=== PATIENT | female | born 1945 | race Caucasian/White ===

== ENCOUNTER → 2016-07-26 | Outpatient (CLI) | payer MEDICARE | END | disposition home or self-care (01) | LOC: PCVCIMAG 10:46 | PROVIDERS: ATTEND Internal Medicine Cardiovascular Disease | DX: I10 Essential (primary) hypertension (principal); I65.23 Occlusion and stenosis of bilateral carotid arteries; I70.1 Atherosclerosis of renal artery; I71.4 Abdominal aortic aneurysm, without rupture; I25.10 Atherosclerotic heart disease of native coronary artery without angina pectoris; E78.00 Pure hypercholesterolemia, unspecified; E78.70 Disorder of bile acid and cholesterol metabolism, unspecified | CPT/HCPCS: 93005; 93880; G0463 ==

== ENCOUNTER → 2017-04-25 | Outpatient (CLI) | payer MEDICARE ==
--- NOTE | 2017-04-25 13:22 | PCVCIMAG ---
EXAM: BILATERAL CAROTID DUPLEX INDICATION: Carotid Occlusive Disease. FINDINGS: Doppler Measurements (centimeters per second): RIGHT: Peak CCA-89, Peak ECA-228, Diastolic ICA-44, Peak ICA-219, ICA/CCA Ratio-2.5. LEFT: Peak CCA-89, Peak ECA-244, Diastolic ICA-41, Peak ICA-176, ICA/CCA Ratio-2.0. RIGHT CAROTID: The carotid bulb has moderately severe plaque. The proximal internal carotid artery shows 60-70% stenosis. The common carotid artery shows no significant stenosis. The external carotid artery shows 70% stenosis. LEFT CAROTID: The carotid bulb has moderately severe plaque. The proximal internal carotid artery shows 60-70% stenosis. The common carotid artery shows no significant stenosis. The external carotid artery shows 70% stenosis. Antegrade flow in both vertebral arteries. IMPRESSION: 60-70% stenosis of the right internal carotid artery with moderately severe plaque. 60-70% stenosis of the left internal carotid artery with moderately severe plaque. LOC:[place] [id number]
--- NOTE | 2017-04-25 13:36 | PCVCIMAG ---
EXAM: AORTOILIAC DUPLEX INDICATION: Peripheral arterial disease FINDINGS: AORTA: Suprarenal aorta measures maximum diameter of 3.0 cm. There is a fusiform infrarenal aortic aneurysm. The infrarenal aorta measures maximum diameter of 3.4 x 4.0 cm. No aortic stenosis. RIGHT COMMON ILIAC ARTERY: Maximum diameter is 1.4 cm. No significant stenosis. RIGHT EXTERNAL ILIAC ARTERY: No significant stenosis. LEFT COMMON ILIAC ARTERY: Maximum diameter is 1.3 cm. Mild stenosis. LEFT EXTERNAL ILIAC ARTERY: No significant stenosis. IMPRESSION: 4.0 cm infrarenal abdominal aortic aneurysm compares to 2.6 cm on May 2016 study. Interval follow-up is suggested. No high-grade iliac stenosis. LOC:[id number]
--- NOTE | 2017-04-25 13:38 | PCVCIMAG ---
EXAM: BILATERAL RENAL ULTRASOUND AND BILATERAL RENAL DUPLEX INDICATION: Hypertension FINDINGS: Right kidney: Length measures 10.2 cm. No hydronephrosis or extensive renal scarring. Right renal duplex: Adequate technical quality. No sonographic evidence of renal artery stenosis. The aortic to renal artery ratio is 1.7. The renal vein is patent. Left kidney: Length measures 11.4 cm. No hydronephrosis or extensive renal scarring. Left renal duplex: Adequate technical quality. No sonographic evidence of renal artery stenosis. The aortic to renal artery ratio is 1.7. The renal vein is patent. Bladder: No obvious abnormalities. IMPRESSION: No significant renal artery stenosis. No hydronephrosis bilaterally. LOC:[id number]
--- NOTE | 2017-04-25 13:39 | PCVCIMAG ---
APPROVED REPORT Exam: Stress Echocardiogram Indication: Hypertension, CAD s/p CABG Patient Location: Echo lab Stress Nurse: Corry Ruelas RN Status: routine Ht: 5 ft 2 in HR: 83 bpm BP: 136/74 mmHg Rhythm: NSR Procedure The patient underwent an Exercise Stress Test using the Isabela Protocol. Blood pressure, heart rate, and EKG were monitored. An Echocardiogram was performed by food quality technician in four stages in quad fashion. At peak stress, four selected images were obtained and placed side by side with resting images for comparison. Stress Test Details Stress Test: Exercise stress testing was performed using a Isabela protocol. HR Resting HR: 83 bpmMax Heart Rate (APMHR): 150 bpm Max HR Achieved: 153 bpmTarget HR (85% APMHR): 127 bpm % of APMHR: 102 Recovery HR: 96 bpm HR response to stress: Normal HR response to stress BP Resting BP: 136/74 mmHg Max BP: 160/74 mmHg Recovery BP: 114/70 mmHg ECG Resting ECG: Sinus Rhythm Stress ECG: Sinus Rhythm Recovery ECG: Sinus Rhythm Clinical Reason for Termination: Dyspnea, Maximal effort Stress Symptoms: Dyspnea Exercise duration: 6 min 00 sec Highest Stage Achieved: Stage 2: 2.5 mph at 12% grade. Exercise capacity: 7.00 METs Overall Exercise Capacity for Age: Average Stress ECG Conclusion The patient exercised according to the ISABELA protocol for 6:00 min;s, achieving a work level of Max METS: 7.00. The resting heart rate of 83 abelardo to a maximal heart rate of 153. This value represents 102% of the maximal, age-predicted heart rate. The resting blood pressure of 136/74 mmHg abelardo to a maximal blood pressure of 160/74 mmHg. The exercise test was stopped due to dyspnea, wheezing. Pre-Stress Echo The resting Echocardiogram showed normal left ventricular contractility with an estimated Ejection Fraction of about >55%. Post-Stress Echo The stress Echocardiogram showed normal left ventricular contractility with an estimated Ejection Fraction of about 60-65%. Clinical No clinical or ECG evidence for ischemia. Conclusion Clinical Response: Non-ischemic Exercise Capacity: Average Stress ECG Response: Non-ischemic Stress Echo Images: Non-ischemic Other Information Study Quality: Good
== END | disposition home or self-care (01) ==
LOC: PCVCIMAG 08:18
PROVIDERS: ATTEND Internal Medicine Cardiovascular Disease
DX: I65.23 Occlusion and stenosis of bilateral carotid arteries (principal); E78.00 Pure hypercholesterolemia, unspecified; I73.9 Peripheral vascular disease, unspecified; I71.4 Abdominal aortic aneurysm, without rupture; I70.1 Atherosclerosis of renal artery; I10 Essential (primary) hypertension; I25.10 Atherosclerotic heart disease of native coronary artery without angina pectoris; Z95.1 Presence of aortocoronary bypass graft
CPT/HCPCS: 76770; 80061; 93325; 93351; 93880; 93975; 93978

== ENCOUNTER → 2018-01-23 | Outpatient (CLI) | payer MEDICARE | END | disposition home or self-care (01) | LOC: PCVCIMAG 14:16 | DX: I25.810 Atherosclerosis of coronary artery bypass graft(s) without angina pectoris (principal); I71.4 Abdominal aortic aneurysm, without rupture; I70.1 Atherosclerosis of renal artery; E78.00 Pure hypercholesterolemia, unspecified; I77.9 Disorder of arteries and arterioles, unspecified; Z79.82 Long term (current) use of aspirin | CPT/HCPCS: 93005; 93978; G0463 ==

== ENCOUNTER → 2018-05-07 | Outpatient (CLI) | payer MEDICARE ==
[~2018-05-07] MED LIST: REGADENOSON 0.4 MG/5 ML DISP.SYRIN. IV ONE
--- NOTE | 2018-05-07 11:59 | PCVCIMAG ---
EXAM: BILATERAL CAROTID DUPLEX INDICATION: Carotid Occlusive Disease. FINDINGS: Doppler Measurements (centimeters per second): RIGHT: Peak CCA-77, Peak ECA-244, Diastolic ICA-47, Peak ICA-254, ICA/CCA Ratio-3.3. LEFT: Peak CCA-84, Peak ECA-232, Diastolic ICA-45, Peak ICA-181, ICA/CCA Ratio-2.2. RIGHT CAROTID: The carotid bulb has moderately severe plaque. The proximal internal carotid artery shows 70% stenosis. The common carotid artery shows no significant stenosis. The external carotid artery shows 70% stenosis. LEFT CAROTID: The carotid bulb has moderately severe plaque. The proximal internal carotid artery shows 60% stenosis. The common carotid artery shows no significant stenosis. The external carotid artery shows 70% stenosis. Antegrade flow in both vertebral arteries. IMPRESSION: 70% stenosis of the right internal carotid artery with moderately severe plaque. 60% stenosis of the left internal carotid artery with moderately severe plaque. LOC:[place] [id number]
--- NOTE | 2018-05-11 18:15 | PCVCIMAG ---
APPROVED REPORT Imaging Protocol: Rest Tc-99m/Stress Tc-99m 1 day Study performed: 05/07/2018 12:46:05 Indication: CAD Patient Location: Out-Patient Stress Nurse: Gifty Neves RN HI Tech:ROSS Solorio Ht: 5 ft 1 in Wt: 152 lbs BSA: 1.68 m2 HR: 85 bpm BP: 124/65 mmHg BMI: 28.7 Rhythm: Normal Sinus Rhythm Medical History Medications: Amlodipine, ASA, Zetia, Bystolic, Omeprazole, Crestor Allergies: No known drug allergies Cardiac Risk Factors: Age, Hyperlipidemia, PVD, CAD Previous Cardiac Procedures: CABG, PCI(Lt Main Stent) Pretest Chest Pain Characteristics: No chest pain Resting Data Rest SPECT myocardial perfusion imaging was performed in supine position 45 minutes following the intravenous injection of 10.9 mCi of Tc-99m Sestamibi. Time of rest injection: 1200 Date: 05/07/2018 Administration Route: IV Administration Site: Right AC Pharmacologic Stress Pharmacologic stress test was performed by injecting Regadenoson 0.4 mg IV push over 10-15 seconds immediately followed by the intravenous injection of 31.2 mCi of Tc-99m Sestamibi. Time of stress injection: 1315 Date: 05/07/2018 Administration Route: IV Administration Site: Right AC Gated Stress SPECT was performed 45 minutes after stress injection. The images were gated to evaluate regional wall motion and calculate left ventricular ejection fraction. Stress Test Details Stress Test: Pharmacologic stress was paired with low level exercise. HRMax Heart Rate (APMHR): 149 bpm Resting HR: 85 bpmTarget HR (85% APMHR): 126 bpm Max HR Achieved: 113 bpm % of APMHR: 75 Recovery HR: 78 bpm BP Resting BP: 124/65 mmHg Recovery BP: 113/56 mmHg ECG Resting ECG: Normal Sinus Rhythm Stress ECG: Sinus Tachycardia, PVCs Arrhythmia: PVCs Recovery ECG: Normal Sinus Rhythm Clinical Reason for Termination: Completed protocol Stress Symptoms: Abdominal discomfort, Dyspnea, Nausea, Leg Fatigue, Lightheaded Exercise duration: 4 min 00 sec Symptoms resolved with caffeine. Stress ECG Conclusion ECG: Non-ischemic Study Quality Study: Good Study Data Post stress, the left ventricular ejection was 89%.. SSS: 2 SRS: 1 SDS: 1 TID = 1.12. Perfusion No evidence of stress induced ischemia. 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 Nuclear Conclusion No evidence of stress induced ischemia. 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 Post stress, the left ventricular ejection was 89%. No prior study available for comparison. Interpreted by: Yanick Cooley MD Electronically Approved: 05/07/2018 16:39:22 <Conclusion> ECG: Non-ischemic
== END | disposition home or self-care (01) ==
LOC: PCVCIMAG 11:01
PROVIDERS: ATTEND Internal Medicine Cardiovascular Disease
DX: I65.23 Occlusion and stenosis of bilateral carotid arteries (principal); I25.810 Atherosclerosis of coronary artery bypass graft(s) without angina pectoris
CPT/HCPCS: 78452; 93017; 93880; A9500; J2785